=== PATIENT | female | born 1930 | race Caucasian/White ===

== ENCOUNTER → 2019-11-06 | Outpatient (CLI) | payer MEDICARE, BC ==
[2019-11-06 11:54] LABS: Basophils # (A) 0.1 k/uL (0-0.2); Basophils % (A) 1 %; Eosinophils # (A) 0.1 k/uL (0-0.7); Eosinophils % (A) 2 %; HCT 43.4 % (34.0-46.0); HGB 13.6 gm/dL (11.4-16.0); Lymphocytes # (A) 1.1 k/uL (1.0-4.8); Lymphocytes % (A) 16 %; MCH 30.6 pg (25.0-35.0); MCHC 31.4 g/dL (31.0-37.0); MCV 97.4 fL (80.0-100.0); Mean Platelet Volume 7.8; Monocytes # (A) 0.4 k/uL (0-1.0); Monocytes % (A) 5 %; Neutrophils # (A) 4.9 k/uL (1.3-7.7); Neutrophils % (A) 74 %; Platelet Count 173 k/uL (150-450); RBC 4.46 m/uL (3.80-5.40); RDW 13.1 % (11.5-15.5); WBC 6.7 k/uL (3.8-10.6)
[2019-11-06 15:36] LABS: Erythrocyte Sedimentation Rate 18 mm/hr (0-20)
[2019-11-06 18:44] LABS: T4, Free (Free Thyroxine) 1.2 ng/dL (0.80-1.80)
[2019-11-06 18:55] LABS: Folate, Serum 12.9 ng/mL
[2019-11-06 20:02] LABS: African American GFR (CKD) 76.8 (60.0-200.0); Albumin 3.7 g/dL (3.80-4.90); Albumin/Globulin Ratio 1.54 (1.60-3.17); Anion Gap 11.1 mmol/L (4.00-12.00); BUN/Creat Ratio 28.75 Ratio (12.00-20.00); Calcium 9.4 mg/dL (8.7-10.3); Carbon Dioxide 29.9 mmol/L (21.6-31.8); Globulin 2.4 g/dL (1.6-3.3); Non-African American GFR(CKD) 66.3 (60.0-200.0); Potassium 4.7 mmol/L (3.5-5.5); Total Bilirubin 0.8 mg/dL (0.3-1.2); Total Protein 6.1 g/dL (6.2-8.2)
== END | disposition home or self-care (01) ==
LOC: LABWHC1 10:29
PROVIDERS: ATTEND Family Medicine
DX: I10 Essential (primary) hypertension (principal); R53.82 Chronic fatigue, unspecified
CPT/HCPCS: 36415; 80053; 82306; 82607; 82746; 83735; 84439; 84443; 85025; 85652

== ENCOUNTER 2020-02-27 14:14 | Emergency (ER) | payer MEDICARE, BC ==
--- NOTE | 2020-02-27 14:54 | US ---
EXAMINATION TYPE: US venous doppler duplex LE RT DATE OF EXAM: 02/27/2020 2:46 PM COMPARISON: NONE CLINICAL HISTORY: R22.40 SWELLING,MASS AND LUMP. SIDE PERFORMED: TECHNIQUE: The lower extremity deep venous system is examined utilizing real time linear array sonog fiordaliza with graded compression, doppler sonography and color-flow sonography. VESSELS IMAGED: External Iliac Vein (EIV) Common Femoral Vein Deep Femoral Vein Greater Saphenous Vein * Femoral Vein Popliteal Vein Small Saphenous Vein * Proximal Calf Veins (* superficial vessels) Right Leg: Anterior branch of popliteal vein appears thrombosed, posterior branch is patent. Positiv e for DVT. IMPRESSION: Findings compatible with the DVT as noted above.
[2020-02-27 15:15] VITALS: RESP 18; TEMP 98.1
--- NOTE | 2020-02-27 15:31 | ED ---
Extremity Problem HPI - General Chief complaint: Extremity Problem,Nontraumatic Stated complaint: rt leg Blood clot Time Seen by Provider: 02/27/20 15:17 Source: patient Mode of arrival: wheelchair Limitations: no limitations - History of Present Illness Initial comments: 89-year-old female patient presents to the emergency department today for evaluation after having a positive venous ultrasound of the right lower extremity. Patient states that she has been having swelling to the right leg for the last year. Patient states that she saw her primary care physician and he ordered an ultrasound outpatient. The ultrasound did show a DVT in the popli teal vein to she was sent here for further evaluation. Patient does not currently take any anticoagulants or antiplatelet medications. Denies any recent falls, head injury, history of intracranial hemorrhage, or GI bleed. Denies history of DVT. Denies any pain to the leg. Patient denies any recent rash, fever, chills, cough, shortness of breath, chest pain, abdominal pain, nausea, vomiting, diarrhea, constipation, back pain, numbness, tingling, dizziness, weakness, hematuria, dysuria, urinary urgency, urinary frequency, headache, visual changes, or any other complaints. - Related Data Home Medications Medication Instructions Recorded Confirmed Ascorbic Acid [Vitamin C] 500 mg PO DAILY 09/11/19 02/27/20 Calcium Carbonate [Calcium] 600 mg PO DAILY 09/11/19 02/27/20 Cranberry Fruit Extract [Cranberry] 500 mg PO DAILY 09/11/19 02/27/20 Atenolol [Tenormin] 100 mg PO DAILY 02/27/20 02/27/20 Docusate [Colace] 100 mg PO Q48H 02/27/20 02/27/20 glipiZIDE XL [Glucotrol Xl] 10 mg PO BID 02/27/20 02/27/20 Previous Rx's Medication Instructions Recorded Aspirin 81 mg PO DAILY 30 Days #30 chew 09/13/19 Losartan [Cozaar] 50 mg PO DAILY 30 Days #30 tab 09/13/19 Apixaban [Eliquis Starter Pack 0 mg PO DIRECTED 30 Days #1 pack 02/27/20 (for VTE)] Allergies Allergy/AdvReac Type Severity Reaction Status Date / Time No Known Allergies Allergy Verified 02/27/20 16:04 Review of Systems ROS Statement: Those systems with pertinent positive or pertinent negative responses have been documented in the HPI. ROS Other: All systems not noted in ROS Statement are negative. Past Medical History Past Medical History: Diabetes Mellitus, Hyperlipidemia, Hypertension History of Any Multi-Drug Resistant Organisms: None Reported Past Surgical History: Breast Surgery, Orthopedic Surgery Additional Past Surgical History / Comment(s): Breast CA-right, b/l knee replacement Past Anesthesia/Blood Transfusion Reactions: No Reported Reaction Past Psychological History: No Psychological Hx Reported Smoking Status: Never smoker Past Alcohol Use History: None Reported Past Drug Use History: None Reported - Past Family History Father Family Medical History: Coronary Artery Disease (CAD) Mother Family Medical History: No Reported History General Exam Limitations: no limitations General appearance: alert, in no apparent distress, other (This is a well- developed, well-nourished elderly female patient in no acute distress. Vital signs upon presentation are temperature 98.1F, pulse 63, respirations 18, blood pressure 157/96, pulse ox 98% on room air.) Respiratory exam: Present: normal lung sounds bilaterally. Absent: respiratory distress, wheezes, rales, rhonchi, stridor Cardiovascular Exam: Present: regular rate, normal rhythm, normal heart sounds. Absent: systolic murmur, diastolic murmur, rubs, gallop, clicks GI/Abdominal exam: Present: soft, normal bowel sounds. Absent: distended, tenderness, guarding, rebound, rigid Extremities exam: Present: full ROM, normal capillary refill, other (There is right lower extremity swelling, erythema to the lower leg. There is no tenderness. Skin is pink, warm, dry. Cap refills less than 3 seconds. Pedal posttibial pulses are 2+.). Absent: normal inspection, tenderness, pedal edema, joint swelling, calf tenderness Neurological exam: Present: alert, oriented X3, CN II-XII intact Psychiatric exam: Present: normal affect, normal mood Skin exam: Present: warm, dry, intact, normal color. Absent: rash Course Vital Signs 02/27/20 15:12 Temperature 98.1 F Pulse Rate 63 Respiratory 18 Rate Blood Pressure 157/96 O2 Sat by Pulse 98 Oximetry Medical Decision Making - Medical Decision Making 89-year-old female patient presents to the emergency department today for dory luation after having a positive ultrasound outpatient. Patient does have DVT to the right lower extremity. Physical examination did reveal generalized swelling to the leg. Skin color is normal and pulses are intact. Labs reviewed and were unremarkable. We will start Megan here in the department. We did go over extensive education regarding use of anticoagulant medications. She will be dis charged to follow up with her primary care physician for recheck in 1-2 days. Return parameters were discussed in detail. She verbalizes understanding and agrees with this plan. - Lab Data Result diagrams: 02/27/20 15:34 02/27/20 15:34 Lab Results 02/27/20 02/27/20 02/27/20 Range/Units 15:34 15:34 15:34 WBC 6.8 (3.8-10.6) k/uL RBC 4.25 (3.80-5.40) m/uL Hgb 13.3 (11.4-16.0) gm/dL Hct 40.4 (34.0-46.0) % MCV 95.1 (80.0-100.0) fL MCH 31.3 (25.0-35.0) pg MCHC 33.0 (31.0-37.0) g/dL RDW 12.9 (11.5-15.5) % Plt Count 143 L (150-450) k/uL Neutrophils % 72 % Lymphocytes % 17 % Monocytes % 6 % Eosinophils % 3 % Basophils % 1 % Neutrophils # 4.8 (1.3-7.7) k/uL Lymphocytes # 1.2 (1.0-4.8) k/uL Monocytes # 0.4 (0-1.0) k/uL Eosinophils # 0.2 (0-0.7) k/uL Basophils # 0.1 (0-0.2) k/uL PT 10.6 (9.0-12.0) sec INR 1.0 (<1.2) APTT 24.0 (22.0-30.0) sec Sodium 138 (137-145) mmol/L Potassium 5.1 (3.5-5.1) mmol/L Chloride 104 (98-107) mmol/L Carbon Dioxide 27 (22-30) mmol/L Anion Gap 7 mmol/L BUN 41 H (7-17) mg/dL Creatinine 0.95 (0.52-1.04) mg/dL Est GFR (CKD-EPI)AfAm 63 (>60 ml/min/1.73 sqM) Est GFR (CKD-EPI)NonAf 54 (>60 ml/min/1.73 sqM) Glucose 96 (74-99) mg/dL Calcium 9.3 (8.4-10.2) mg/dL Total Bilirubin 1.1 (0.2-1.3) mg/dL AST 69 H (14-36) U/L ALT 54 H (4-34) U/L Alkaline Phosphatase 109 (38-126) U/L Total Protein 6.7 (6.3-8.2) g/dL Albumin 4.0 (3.5-5.0) g/dL - Radiology Data Radiology results: report reviewed, image reviewed Ultrasound of the right lower extremity was obtained. Report was reviewed in its entirety. Impression by Dr. Mobley shows findings compatible with DVT to the anterior brain to the popliteal vein. Disposition Clinical Impression: Right leg DVT Disposition: HOME SELF-CARE Condition: Good Instructions (If sedation given, give patient instructions): Deep Vein Thrombosis (ED), Safe Use of Anticoagulants (ED) Additional Instructions: Follow-up she primary care physician for recheck as soon as possible. Take medications as directed. Return to the emergency department immediately if you have any head injuries, headache, or develop any bleeding. Return for any other new, worsening, or concerning symptoms. Prescriptions: Apixaban [Eliquis Starter Pack (for VTE)] 0 mg PO DIRECTED 30 Days #1 pack Is patient prescribed a controlled substance at d/c from ED?: No Referrals: Kush Cadena MD [Primary Care Provider] - 1-2 days Time of Disposition: 16:49
[2020-02-27 15:50] LABS: Basophils # (A) 0.1 k/uL (0-0.2); Basophils % (A) 1 %; Eosinophils # (A) 0.2 k/uL (0-0.7); Eosinophils % (A) 3 %; HCT 40.4 % (34.0-46.0); HGB 13.3 gm/dL (11.4-16.0); Lymphocytes # (A) 1.2 k/uL (1.0-4.8); Lymphocytes % (A) 17 %; MCH 31.3 pg (25.0-35.0); MCV 95.1 fL (80.0-100.0); Mean Platelet Volume 9.1; Monocytes # (A) 0.4 k/uL (0-1.0); Monocytes % (A) 6 %; Neutrophils # (A) 4.8 k/uL (1.3-7.7); Neutrophils % (A) 72 %; Platelet Count 143 k/uL (150-450); RBC 4.25 m/uL (3.80-5.40); RDW 12.9 % (11.5-15.5); WBC 6.8 k/uL (3.8-10.6)
[2020-02-27 16:01] LABS: Calcium 9.3 mg/dL (8.4-10.2); Total Bilirubin 1.1 mg/dL (0.2-1.3); Total Protein 6.7 g/dL (6.3-8.2)
[2020-02-27 16:05] LABS: Potassium 5.1 mmol/L (3.5-5.1)
[2020-02-27 16:27] LABS: Prothrombin Time 10.6 sec (9.0-12.0)
[2020-02-27] MEDS ORDERED: APIXABAN 5 MG TAB PO STA (16:45)
[2020-02-27 17:13] VITALS: BP 132/90; PULSE 59
== END 2020-02-27 17:17 | disposition home or self-care (01) ==
LOC: SUPCPDRO 14:14 → EC 14:14 → RADUSWWP 14:14 → EC 17:17
DX: I82.431 Acute embolism and thrombosis of right popliteal vein (principal); I10 Essential (primary) hypertension; E11.9 Type 2 diabetes mellitus without complications; Z79.899 Other long term (current) drug therapy; Z79.84 Long term (current) use of oral hypoglycemic drugs; Z85.3 Personal history of malignant neoplasm of breast; Z96.653 Presence of artificial knee joint, bilateral
CPT/HCPCS: 36415; 80053; 85025; 85610; 85730; 99284